=== PATIENT | male | born 1970 | race Caucasian/White ===

== ENCOUNTER 2016-12-28 00:13 | Emergency (ER) | payer OTHER ==
--- NOTE | 2016-12-28 03:10 | ED ORDER SUMMARY ---
..... Patient: JOSE BHAKTA OrderSheet [facility] VisitID: [id number] [place] [address] 46y, M Registration Date/Time: 12/28/2016 ORDER SHEET Weight: 90.7 kg (stated) Allergies: No Known Drug Allergy GENERAL ORDERS: CT Head wo Cont Urgent (01:12/28/2016 Yumiko Jung) (Ack 1:22 [facility] Sleep Technologist) (2:11 Sharon R.N.) Shoulder 2V or more Left Urgent (:12/28/2016 Yumiko Jung) (Ack 1:22 [facility] Sleep Technologist) (2:11 Sharon R.N.) MEDICATION ORDERS: Hydrocodone-APAP PO 5/325 mg (NOW, HIGH ALERT MEDICATION) (01:17 12/28/2016 Yumiko Jung) (Ack 1:21 Sharon R.N.) (1:34 Sharon R.N.) IV FLUIDS: ORDER SHEET NOTES: [Electronically signed by Amy Cabezas R.N. (04:41 12/28/2016)] [Electronically signed by Benjamin Voss Dr. (20:51 12/29/2016)] [Electronically locked/signed by Amy Cabezas R.N. (04:41 12/28/2016)]
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
--- NOTE | 2016-12-28 03:10 | ED ORDER SUMMARY ---
..... Patient: JOSE BHAKTA OrderSheet [facility] VisitID: [id number] [place] [address] 46y, M Registration Date/Time: 12/28/2016 ORDER SHEET Weight: 90.7 kg (stated) Allergies: No Known Drug Allergy GENERAL ORDERS: CT Head wo Cont Urgent (01:12/28/2016 Yumiko Jung) (Ack 1:22 A[facility] Tower Erector Helper) (2:11 Sharon R.N.) Shoulder 2V or more Left Urgent (:12/28/2016 Yumiko Jung) (Ack 1:22 A[facility] Tower Erector Helper) (2:11 Sharon R.N.) MEDICATION ORDERS: Hydrocodone-APAP PO 5/325 mg (NOW, HIGH ALERT MEDICATION) (01:17 12/28/2016 Yumiko Jung) (Ack 1:21 Sharon R.N.) (1:34 Sharon R.N.) IV FLUIDS: ORDER SHEET NOTES: [Electronically signed by Amy Cabezas R.N. (04:41 12/28/2016)] [Electronically signed by Benjamin Voss Dr. (20:51 12/29/2016)] [Electronically locked/signed by Amy Cabezas R.N. (04:41 12/28/2016)]
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
--- NOTE | 2016-12-29 20:51 | ED MED RECONCILIATION SUMMARY ---
Patient: JOSE BHAKTA Medication Reconciliation Report [facility] VisitID: [id number] [address] [place] [address] 46y, M Registration Date/Time: 12/28/2016 Weight: 90.7 kg Height/Length: 74 in. BMI: 25.7 ALLERGIES: No Known Drug Allergy The patient's Home Medications are listed below: CONTINUE TAKING THE FOLLOWING MEDICATIONS: Seizure Pill, daily The source(s) of the original Home Medication information: Not obtained. The following Medications were given to the patient in the Emergency Department: Hydrocodone-APAP [PO] PO 1 tab, administered: 12/28/2016 1:25:00 AM The following Medications were prescribed to the patient: Diclofenac 50 mg tablets: take 1 tablet orally every 8 hours as needed for pain or stiffness. Dispense thirty (30). No refill. -- Benjamin Voss Dr.
--- NOTE | 2016-12-29 20:51 | ED MAR SUMMARY ---
..... Medication Administration Record [address] [place] [address] Patient: JOSE BHAKTA Visit ID: [id number] 46y, M Weight: 90.7 kg Height/Length: 74 in BMI: 25.7 ALLERGIES: No Known Drug Allergy Given 01:25 12/28/2016 Amy Cabezas R.N. Medication Administered: HYDROCODONE-APAP [PO] (HYDROCODONE-ACETAMINOPHEN), Dose: 1 tab 5/325 mg Tablets PO. Medication Ordered: Hydrocodone-APAP PO 5/325 mg (NOW, HIGH ALERT MEDICATION).
--- NOTE | 2016-12-29 20:51 | ED MAR SUMMARY ---
..... Medication Administration Record [address] [place] [address] Patient: JOSE BHAKTA Visit ID: [id number] 46y, M Weight: 90.7 kg Height/Length: 74 in BMI: 25.7 ALLERGIES: No Known Drug Allergy Given 01:25 12/28/2016 Amy Cabezas R.N. Medication Administered: HYDROCODONE-APAP [PO] (HYDROCODONE-ACETAMINOPHEN), Dose: 1 tab 5/325 mg Tablets PO. Medication Ordered: Hydrocodone-APAP PO 5/325 mg (NOW, HIGH ALERT MEDICATION).
--- NOTE | 2016-12-29 20:51 | ED MED RECONCILIATION SUMMARY ---
Patient: JOSE BHAKTA Medication Reconciliation Report [facility] VisitID: [id number] [address] [place] [address] 46y, M Registration Date/Time: 12/28/2016 Weight: 90.7 kg Height/Length: 74 in. BMI: 25.7 ALLERGIES: No Known Drug Allergy The patient's Home Medications are listed below: CONTINUE TAKING THE FOLLOWING MEDICATIONS: Seizure Pill, daily The source(s) of the original Home Medication information: Not obtained. The following Medications were given to the patient in the Emergency Department: Hydrocodone-APAP [PO] PO 1 tab, administered: 12/28/2016 1:25:00 AM The following Medications were prescribed to the patient: Diclofenac 50 mg tablets: take 1 tablet orally every 8 hours as needed for pain or stiffness. Dispense thirty (30). No refill. -- Benjamin Voss Dr.
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
== END 2016-12-28 03:28 | disposition home or self-care (01) ==
LOC: ED SRH 00:13
DX: S05.11XA Contusion of eyeball and orbital tissues, right eye, initial encounter (principal); S40.012A Contusion of left shoulder, initial encounter